=== PATIENT | female | born 2000 | race Caucasian/White ===

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

== ENCOUNTER 2020-07-17 09:38 | Inpatient (IN) | payer BC, SELFPAY ==
[2020-07-17] VITALS (90 sets, daily range): BP systolic 88–137; BP diastolic 58–93; PULSE 75–179; RESP 18; TEMP 36.6–37.2; O2SAT 95–100; BMI 34.7
--- NOTE | 2020-07-17 11:10 | LDADM ---
This patient, Kaley Chavarria, was admitted to Labor/Delivery/Recovery 104 on 07/17/20 at 09:38. Plans for labor, pain management and were discussed with patient. Patient/family oriented to hospital policies and general routines including ID bracelet, bed and alarms, visiting hours, pain management, procedures, bathroom and other care routines, personal items, smoking policy, room service/diet and guest tray routines, security routines, and visiting hours. Patient/Family are encouraged to report perceived risks to care and to ask questions if they do not understand what they are told or what they should do. See OBIX for further documentation.
[2020-07-17] MEDS: LACTATED RINGERS 1,000 ML 125 ML IV CONT (11:33)
[2020-07-17 11:35] LABS: Basophils Absolute Auto 0.1 K/mm3 (0.0-0.1); Basophils Percent Auto 0.3 % (0.2-1.2); Eosinophils Absolute Auto 0.1 K/mm3 (0-0.3); Eosinophils Percent Auto 0.3 % (0-4.4); Hematocrit 37.9 % (37.0-47.0); Hemoglobin 12.7 g/dL (12.0-15.0); Immature Granulocyte Absolute 0.15 K/mm3 (0.00-0.031); Immature Granulocyte Percent A 0.7 % (0-0.5); Lymphocytes Absolute Auto 2.54 K/mm3 (0.9-3.2); Lymphocytes Percent Auto 12.6 % (18.3-44.2); Mean Corpuscular HGB Conc 33.5 g/dl (32-36); Mean Corpuscular Hemoglobin 29.5 pg (26-34); Mean Corpuscular Volume 88.1 fl (80-100); Mean Platelet Volume 10.9 fl (7.4-10.4); Monocytes Absolute Auto 1.3 K/mm3 (0.1-0.6); Monocytes Percent Auto 6.3 % (2.6-8.5); Neutrophils Percent Auto 79.8 % (45.5-73.1); Platelet Count Result 265 k/mm3 (150-375); Red Cell Distribution Width 14.8 % (11.5-14.5); White Blood Count 20.1 K/mm3 (4.5-10.0)
--- NOTE | 2020-07-17 12:19 | WPDANESEPP ---
Anes - Eval Pre Procedure Procedure: Labor Epidural Date/Time: 07/17/20 12:19 Surgeon: Naeem Preop Diagnosis: Labor Pain Pre Op Diagnosis: Contractions Patient Data Age: 20 Gender: F Height: 5 ft 7 in Weight: 100.5 kg Last Vital Signs Pulse 97 07/17/20 12:18 BP 113/66 07/17/20 12:18 Pulse Ox 98 07/17/20 12:19 Allergies Allergy/AdvReac Type Severity Reaction Status Date / Time No Known Allergies Allergy Verified 06/20/20 12:37 Home Medications Medication Instructions Recorded Confirmed Type ferrous sulfate 325 mg PO DAILY 06/20/20 06/20/20 History prenat.vits,vashti,[id number] 1 tablet PO DAILY 06/20/20 06/20/20 History [ #2] Laboratory Tests 07/17/20 07/17/20 11:25 11:25 WBC 20.1 K/mm3 H K/mm3 (4.5-10.0) RBC 4.30 M/mm3 M/mm3 (4.2-5.4) Hgb 12.7 g/dL g/dL (12.0-15.0) Hct 37.9 % % (37.0-47.0) MCV 88.1 fl fl (80-100) MCH 29.5 pg pg (26-34) MCHC 33.5 g/dl g/dl (32-36) RDW 14.8 % H % (11.5-14.5) Plt Count 265 k/mm3 k/mm3 (150-375) MPV 10.9 fl H fl (7.4-10.4) Immature Gran % (Auto) 0.7 % H % (0-0.5) Neut % (Auto) 79.8 % H % (45.5-73.1) Lymph % (Auto) 12.6 % L % (18.3-44.2) [place] % (Auto) 6.3 % % (2.6-8.5) Eos % (Auto) 0.3 % % (0-4.4) Baso % (Auto) 0.3 % % (0.2-1.2) Lymph # (Auto) 2.54 K/mm3 K/mm3 (0.9-3.2) [place] # (Auto) 1.3 K/mm3 H K/mm3 (0.1-0.6) Eos # (Auto) 0.1 K/mm3 K/mm3 (0-0.3) Baso # (Auto) 0.1 K/mm3 K/mm3 (0.0-0.1) Abs Immat Gran (auto) 0.15 K/mm3 H K/mm3 (0.00-0.031) Absolute Neuts (auto) 16.0 K/mm3 H K/mm3 (1.3-6.7) Absolute Nucleated RBC 0.0 K/mm3 K/mm3 (0.0-0.012) Nucleated RBC % 0.0 % % (0.0-0.2) RPR Pending : gestational age (RAQUEL 07/18/20) Patient hx anesthesia problems: none Family hx anesthesia problems: none [facility] Past Medical History Medical History Accessory navicular bone of right foot Acute appendicitis Afib Current determined by history As of 11/24/19 No pertinent past medical history Overweight (BMI 25.0-29.9) Vision abnormalities Surgical History Surgical History History of appendectomy Family History Family History Other Unknown family medical history Social History Social History Smoking status: Never smoker Second hand tobacco smoke exposure: No Alcohol intake: current Substance use: never Gender identity (if verbalized by the patient): Female Spiritual care concerns: No Exam Day of Procedure 07/17/20 12:19 Patient weight: normal Heart: regular rate and rhythm Lungs: normal air movement Airway: Mallampati scale class II Neurological: alert and oriented
--- NOTE | 2020-07-17 12:43 | PM.IMHP ---
H&P: HPI History of Present Illness Date/Time: 07/17/20 12:43 Chief Complaint: contractions Narrative: Kaley Chavarria is a 20 yo @ 39.6wks (RAQUEL 07/18/20) who presented to L&D in painful contractions every 2-3 minutes and made cervical change from 3 to 4cm; early labor. She is now s/p epidural and comfortable. She denies vaginal bleeding or leakage of fluid. She feels good movement. She has had regular care. Her has been complicated by: - Varicella and rubella non-immune - Mild anemia on iron daily Review of Systems Constitutional: Constitutional: Denies chills and Denies fever(s) Eyes: Eyes: Denies change in vision Cardiovascular: Cardiovascular: Denies chest pain and Denies rapid heart rate Respiratory: Respiratory: Denies cough and Denies dyspnea Gastrointestinal: Gastrointestinal: Denies nausea and Denies vomiting Genitourinary: Genitourinary: Denies vaginal discharge Neurologic: Denies headache(s) Psychiatric: Psychiatric: Denies anxiety and Denies depression [facility] Past Medical History Medical History Accessory navicular bone of right foot Acute appendicitis Afib Current determined by history As of 11/24/19 No pertinent past medical history Overweight (BMI 25.0-29.9) Vision abnormalities Surgical History Surgical History History of appendectomy Family History Family History Other Unknown family medical history Social History Social History Smoking status: Never smoker Second hand tobacco smoke exposure: No Alcohol intake: current Substance use: never Gender identity (if verbalized by the patient): Female Spiritual care concerns: No Meds Home Medications and Allergies Home Medications Medication Instructions Recorded Confirmed Type ferrous sulfate 325 mg PO DAILY 06/20/20 06/20/20 History prenat.vits,vashti,[id number]-[id number]-[id number] 1 tablet PO DAILY 06/20/20 06/20/20 History [ #2] Allergies Allergy/AdvReac Type Severity Reaction Status Date / Time No Known Allergies Allergy Verified 06/20/20 12:37 Vital Signs Vital Signs - 24 hr 07/17/20 11:26 07/17/20 11:31 07/17/20 11:46 Pulse Rate 87 78 85 Blood Pressure 121/77 126/72 120/72 Pulse Oximetry 07/17/20 11:54 07/17/20 11:56 07/17/20 11:58 Pulse Rate 89 87 88 Blood Pressure 130/85 126/77 137/77 Pulse Oximetry 100 07/17/20 11:59 07/17/20 12:01 07/17/20 12:03 Pulse Rate 97 90 Blood Pressure 126/79 133/77 Pulse Oximetry 96 07/17/20 12:04 07/17/20 12:08 07/17/20 12:09 Pulse Rate 81 78 Blood Pressure 129/65 129/74 Pulse Oximetry 98 99 07/17/20 12:11 07/17/20 12:13 07/17/20 12:14 Pulse Rate 93 101 H Blood Pressure 124/72 136/70 Pulse Oximetry 97 07/17/20 12:16 07/17/20 12:18 07/17/20 12:19 Pulse Rate 120 H 97 Blood Pressure 124/70 113/66 Pulse Oximetry 98 07/17/20 12:21 07/17/20 12:23 07/17/20 12:24 Pulse Rate 97 93 Blood Pressure 119/67 110/68 Pulse Oximetry 98 07/17/20 12:26 07/17/20 12:29 07/17/20 12:31 Pulse Rate 88 99 119 H Blood Pressure 104/63 92/60 L 93/70 L Pulse Oximetry 98 07/17/20 12:33 07/17/20 12:34 07/17/20 12:36 Pulse Rate 98 96 Blood Pressure 88/74 L 107/69 Pulse Oximetry 97 07/17/20 12:38 07/17/20 12:39 07/17/20 12:41 Pulse Rate 102 H 108 H Blood Pressure 110/75 118/75 Pulse Oximetry 95 Exam Const: General: cooperative, healthy appearing and comfortable Resp: Effort & Inspection: normal respiratory effort and able to speak in complete sentences Cardio: Rate: regular rate GI: GI Palp: No abdominal tenderness and Yes Soft to palpation : Other: FHT's: 130's/ mod linda/ + accels/ no decels - cat 1 TOCO: ctx's q2-3min Cervix: 4/C/-1 M
--- NOTE | 2020-07-17 13:02 | WPDHPUPDATE1 ---
History and Physical Update Update Date/Time: 07/17/20 13:02 History and Physical has been reviewed, including an updated exam of the patient. There are NO changes in the patient's condition. Risks, benefits, and alternatives have been discussed and questions answered. Patient agrees to proceed with procedure.
[2020-07-17] MEDS: OXYTOCIN 30 UNITS/NS 500 ML 30 UNITS/500 ML BAG IV CONT (13:20)
--- NOTE | 2020-07-17 16:09 | PM.OBPRVD ---
OB - Delivery Note Procedure Delivery date: 07/17/20 Intrapartal events: None Delivery augmentation: rupture of membranes and pitocin Delivery monitor: external FHT and internal uterine Route of delivery: Laceration Description: Vaginal - 2nd Degree Delivery repair: vicryl Specimen: No Quantitative Blood Loss (ml): 400 Anesthesia type: Epidural Disposition: floor Narrative: Kaley rapidly progressed to complete dilation, with desire to push. After approximately 30 minutes of pushing, she delivered the head over intact perineum. No nuchal cord was palpated and she easily delivered the shoulders and body without complications. The infant had spontaneous cry and was immediately placed skin to skin. Delayed cord clamping was performed. The umbilical cord was then clamped and cut. A segment of the cord was collected for cord gases and the remaining cord blood was collected for typing. With Pitocin running, and gentle downward traction on the umbilical cord, the placenta delivered without complications. Bimanual massage was performed and good uterine tone with minimal bleeding was noted. The cervix, vagina, perineum were examined. A right-sided vaginal laceration that extended into the right labia was noted as well as a laceration in the hymen on the left side. Both lacerations were repaired in the normal fashion using 3 0 Vicryl. Good hemostasis was noted. Sponge, lap, needle, instrument counts were correct at the end of the procedure. Mom and baby were left bonding in the birthing suite in a stable condition. [place] Baby Date of : 07/17/20 Time of : 15:36 Weeks of gestation at delivery: 39 Infant gender: Female Weight (pounds): 7 Weight (ounces): 11 presentation: vertex position: Right Occiput Anterior Placenta delivery description: Expressed cord vessel description: 3 Vessels and Delayed Cord Clamping score one minute: 9 score five minutes: 9
[2020-07-17] MEDS: OXYTOCIN 30 UNITS/NS 500 ML 30 UNITS/500 ML BAG 125 UNITS IV CONT (16:21)
[2020-07-17] MEDS: BENZOCAINE 20% AER SPR (*SP) 56 GM CAN 1 SPRAY TOPICAL (18:28)
[2020-07-17] MEDS: WITCH HAZEL 40 PADS 1 PAD TOPICAL (18:28)
[2020-07-17] MEDS: IBUPROFEN 600 MG TABLET PO (18:29)
--- NOTE | 2020-07-17 19:39 | PC.NURSE ---
07/17/2020 at 1848 Patient transferred to post room #281. Kaley's mother, and support person present. Oriented to unit, room, information board, rooming in, admission packet and security measures, and plan of care for mother and baby discussed. Patient verbalizes understanding.
[2020-07-18] MEDS: IBUPROFEN 600 MG TABLET PO ×4 (00:55→20:45)
[2020-07-18 04:00] VITALS: BP 122/79; PULSE 80; RESP 16; TEMP 37.1; O2SAT 99
[2020-07-18 04:29] LABS: Hematocrit 30.7 % (37.0-47.0); Hemoglobin 10.3 g/dL (12.0-15.0)
--- NOTE | 2020-07-18 07:45 | PC.NURSE ---
Addendum entered by Irma Rinaldi RN 07/18/20 15:09: Mother reports she breastfed the first two feedings without issue. did not latch the third feeding and she has been making attempts and bottle feeding. Infant has been spitting up freq., discussed spitting is freq. in the and looks mucus reviewing amniotic fluid. Original Note: Mother called out for assist with feeding. is very spitty with large amounts clear mucus mother states she just wants to feed. Infant nippled 6 mls of formula per mother's request.
[2020-07-18] MEDS: DOCUSATE SODIUM 100 MG CAPSULE PO (08:28)
[2020-07-18] MEDS: MULTIVIT/MIN/PREN/FOL AC/IRON TABLET 1 TAB PO (08:29)
--- NOTE | 2020-07-18 09:38 | WPDANLDPN2 ---
Anes-Prog Note L&D Date/Time: 07/18/20 09:38 Comfortable throughout: labor and delivery Neuraxial method: epidural Epidural/Spinal procedure site: clean & non-tender Neuro status: Neuro function grossly intact. Cardiovascular status: normal Respiratory status: normal Airway patency: baseline Mental status: baseline Post-Op hydration status: normal Vital Signs: Last Vital Signs Temp 37.1 C 07/18/20 04:00 Pulse 80 07/18/20 04:00 Resp 16 07/18/20 04:00 BP 122/79 07/18/20 04:00 Pulse Ox 99 07/18/20 04:00 Pain score (VAS): 0/10. Patient resting in bed at time of assessment, appears comfortable. Support person at bedside. I/O: Intake & Output 07/17/20 07/18/20 07/18/20 23:59 07:59 15:59 Intake Total 700 Output Total 1147 Balance -447 Post-procedural complaints: none Patient feedback: Patient satisfied with anesthetic care.
[2020-07-18 09:55] LABS: Rapid Plasma Reagin Non-Reactive (NonReactive)
[2020-07-18 10:00] VITALS: BP 139/84; PULSE 92; RESP 20; TEMP 36.4; O2SAT 99
--- NOTE | 2020-07-18 13:02 | PM.OBPNVD ---
OB - PN: Subj Subjective Date/time seen: 07/18/20 13:02 s/p on 07/17. Doing well, having some cramping pain when getting up and walking but controlled with pain meds. Bleeding was a little heavy overnight but lightened up in the morning. Bottle and breast feeding. OB - PN: Obj Data Labs CBC & Chem 7: 07/18/20 04:13 Labs: Laboratory Results - last 24 hr 07/17/20 07/17/20 07/18/20 11:25 11:25 04:13 Hgb 10.3 L Hct 30.7 L RPR Non-reactive Blood Type A Positive Antibody Screen Negative OB - PN A/P Assessment and Plan (1) (normal spontaneous vaginal delivery): Code(s): O80 - Encounter for full-term uncomplicated delivery Status: Acute Assessment and Plan: Routine care Pain management Ambulate Time Spent With Patient Time: Total time spent is greater than 50% in coordination of care (as documented) at patient's floor/unit and/or counseling patient: Exam Const: General: cooperative, healthy appearing, comfortable, no acute distress, well developed, alert, awake and Physically active Resp: Effort & Inspection: normal respiratory effort, able to speak in complete sentences, no audible wheezes and no cough Cardio: Rate: regular rate GI: GI Palp: No abdominal tenderness, Yes Soft to palpation, No Tenderness to palpation present (GI) and No Guarding due to palpation present (GI) Other: fundus firm Neuro: General: oriented to person, oriented to place and oriented to time Psych: Appearance: grossly normal Mental Status: mental status grossly normal Speech and movement: Normal speech and movement present Affect: normal affect Attitude: cooperative Thought process: Normal thought process present Thought content: Yes Normal thought content present Insight: Good insight present (Psych) Judgement: Good judgement present (Psych)
[2020-07-18 13:05] VITALS: BP 119/79; PULSE 78; RESP 18; TEMP 36.3; O2SAT 97
--- NOTE | 2020-07-18 13:15 | PC.NURSE ---
Mother called out for assist with . Infant awake and showing feeding cues. Reviewed infant feeding cues, frequencies, duration of feedings, feeding elimination flow sheet, and signs of adequate intake. Demonstrated stimulation techniques to wake infant for feeding. Assisted with to breast. Reviewed positioning/alignment in cross cradle, holding breast and asymmetrical latch on. Infant was able to latch correctly. nursed eagerly, with steady draws and frequent swallowing noted. Reviewed signs of a correct latch, effective nursing and suck swallow ratio. was able to maintain latch without discomfort to mother. Nipple care reviewed. Advised to stimulate while feeding to keep infant awake and interested in feeding for increased stimulation for mother and increased intake for . Instructed mother to call out for RN assistance if she is unable to latch for feeding or she has discomfort with nursing. Instructed feeding should be initiated three hours from start of last feeding or if feeding cues are noted before. Mother voiced understanding of information shared.
--- NOTE | 2020-07-18 14:22 | PCCCNOTE ---
Received referral for positive cannabinoids on baby urine drug screen. Met with pt. and she confirms taking gummies with THC purchased at local dispensary for nausea and vomiting since 8th month of . She indicates having discussed same with her [employer]. She reports no other substance use. FOB is not involved. Pt. declines any concern regarding FOB. She indicates having much support from her mother, other family and friends. She lives with her mother and her 17 year old sister. She plans to return home with family and baby when discharged. She states having all needed items to care for baby at return home. She is on WIC. She declines any previous DCFS involvement. Report made to DCFS for positive cannabinoids and pt. situation is being taken as information only #[id number]. Offered pt. additional resources and encouraged she contact any/all of interest. No further care coordination needs indicated at this time.
[2020-07-18 20:00] VITALS: BP 105/65; PULSE 89; RESP 18; TEMP 37; O2SAT 97
[2020-07-19] MEDS: IBUPROFEN 600 MG TABLET PO ×2 (05:24→12:25)
--- NOTE | 2020-07-19 07:30 | PC.NURSE ---
Consult with pt., mother reports she attempted infant to breast a few time during the night. had difficulties with latching, mother then bottle fed. Mother states she will formula feed and not breastfeed. Offered pumping as an option, mother declined and will formula feed. Discussed engorgement relief. Mother is comfortable with bottle feeding and has no further questions.
[2020-07-19 07:35] VITALS: BP 120/73; PULSE 79; RESP 18; TEMP 36.2; O2SAT 99
[2020-07-19] MEDS: DOCUSATE SODIUM 100 MG CAPSULE PO (07:43)
[2020-07-19] MEDS: MEASLES,MUMPS,RUBELLA VACCINE 0.5 ML VIAL SUB-Q (07:43)
[2020-07-19] MEDS: WITCH HAZEL 40 PADS 1 PAD TOPICAL (07:43)
[2020-07-19] MEDS: MULTIVIT/MIN/PREN/FOL AC/IRON TABLET 1 TAB PO (07:43)
--- NOTE | 2020-07-19 10:00 | PC.NURSE ---
Patient viewed the discharge video Mother & Baby Care, The First Two Weeks . Patient was given the opportunity and encouraged to ask questions. Patient verbalized understanding of information shared and has been given the mother/baby guide for home reference.
--- NOTE | 2020-07-19 11:49 | PM.OBDSVD ---
DS: Admitting Diagnosis Admitting Diagnosis Admitting Diagnosis: Active labor DS: Discharge Diagnosis Discharge Diagnosis (1) (normal spontaneous vaginal delivery): Code(s): O80 - Encounter for full-term uncomplicated delivery Status: Acute Assessment and Plan: Routine care Pain management Ambulate OB - DS: Summary OB Procedures : None OB Procedures Intrapartum: Spontaneous Vag Delivery OB Procedures: : None Time Spent with Patient Time attestation: Total time spent providing and/or coordinating discharge services: Exam Const: General: cooperative, healthy appearing, comfortable, no acute distress, well developed, alert, awake and Physically active Orientation/consciousness: oriented to person, oriented to place, oriented to time and patient oriented x3 Resp: Effort & Inspection: normal respiratory effort, able to speak in complete sentences, no audible wheezes and no cough Cardio: Rate: regular rate GI: Other: fundus firm Neuro: General: oriented to person, oriented to place, oriented to time and patient oriented x3 Extrem: General: normal to inspection Psych: Appearance: grossly normal Mental Status: mental status grossly normal Speech and movement: Normal speech and movement present Affect: normal affect Attitude: cooperative Thought process: Normal thought process present Insight: Good insight present (Psych) Judgement: Good judgement present (Psych) Discharge Plan Discharge Attending physician on discharge: Ivette Hartley Discharging Clinician: Lucina Castellanos Patient Disposition: Home, Self-Care Activity: may shower, as tolerated and pelvic rest Diet: regular Discharge Instructions: Education: Mom and Baby Guide and Preeclampsia Handout Given to: Mother Follow-Up: Call your delivering provider's office for an appointment to be seen in: 4 Weeks Mom and baby should come to the [facility] for the follow-up appointment. Appointment Date/Time: July 20, 2020 at 8:00 am What to expect at your follow-up visit: Physical Assessment Call [phone] if you are unable to keep your appointment time. BREAST CARE: * Wear a snug supportive bra. * For engorgement discomfort: Bottle Feeding: * May apply ice packs EPISIOTOMY/PERINEAL CARE: * Until bleeding stops, use your alize bottle after urinating * Change your pad frequently throughout the day * You may take sitz baths several times a day (fill your bathtub with warm water and soak for 20 minutes.) Do NOT bathe in the water * No tub baths until seen by your physician - You may shower ACTIVITY: * Rest as much as possible. * Do not exercise or lift anything heavier than your baby (such as laundry or other children.) * Avoid stairs or driving as much as possible. * Do not put anything into the vagina. No douching, tampons, or sexual activity until seen by physician. NOTIFY PHYSICIAN IF YOU HAVE ANY QUESTIONS OR IF ANY OF THE FOLLOWING SYMPTOMS OCCUR: * If your episiotomy or stitches become red, swollen, or more painful than what you have experienced in the hospital. * If your vaginal bleeding becomes foul smelling. * If your vaginal bleeding becomes more heavy than a period or if your bleeding changes from pink to bright red. However, you may pass an occasional walnut-sized clot once or twice for the first week . * If you experience a sharp, shooting pain in you calves. * If you discover a hard, reddened area on your breast or if you experience flu-like symptoms. DIET: * Eat regular, well-balanced meals. * Drink plenty of fluids daily. Stand Alone Forms: General Discharge Information Follow-up/Referrals: Ivette Hartley MD [Physician] - Discharge Medications: New polysaccharide iron complex 150 mg iron Capsule 150 mg PO BIDWM Qty: 60 RF: 0 docusate sodium 100 mg Capsule 100 mg PO BID PRN (Reason: Constipation)
[2020-07-20 07:46] VITALS: BP 122/84; PULSE 100; RESP 20; TEMP 37; O2SAT 99
== END 2020-07-19 13:10 | disposition home or self-care (01) | DRG 560 ==
LOC: ANHOB2 07-19 08:47 → ANHLDR 07-20 11:02 → ANHOB2 07-20 11:02
PROVIDERS: Admitting Provider Obstetrics & Gynecology; PCP Family Medicine; Visit Provider Obstetrics & Gynecology
DX: O70.1 Second degree perineal laceration during delivery (principal); Z37.0 Single live birth; Z3A.39 39 weeks gestation of pregnancy
CPT/HCPCS: 36415; 85014; 85018; 85025; 86592; 86850; 86900; 86901; 90710; A9270; J2590; J2795; J7120

== ENCOUNTER 2023-12-11 19:10 | Emergency (ER) | payer OTHER, SELFPAY ==
--- NOTE | 2023-12-11 19:13 | ED.URI ---
HPI - URI/Sore Throat General Chief Complaint: Upper Respiratory Infection Stated Complaint: STIFF NECK/SWOLLEN TONSILS Time Seen by Provider: 12/11/23 19:41 Source: patient and RN notes reviewed Mode of arrival: ambulatory Limitations: no limitations History of Present Illness HPI Narrative: 23-year-old female presents with concern of for 2 month history of sore throat, stiff neck, ear pain, joint pain, abdominal discomfort. Reports she was diagnosed with strep in October, she has taken 2 rounds of antibiotics and had prednisone since this started without improvement of her symptoms. She reports she has been taking ibuprofen 3 times a day for her symptoms. She denies fever. She denies vomiting, diarrhea. MD elicited complaint: sore throat Related Data Home Medications Medication Instructions Recorded Confirmed No Home Medications 12/11/23 12/11/23 Allergies Allergy/AdvReac Type Severity Reaction Status Date / Time No Known Allergies Allergy Verified 12/11/23 19:29 Review of Systems Review of Systems: CONSTITUTIONAL: Denies malaise, chills, sweats, or fever. EYES: Denies visual changes, redness, or discharge. ENT: Denies rhinorrhea, congestion, sinus pain. Reports otalgia and sore throat. CARDIOVASCULAR: Denies chest pain, palpitations, or edema. RESPIRATORY: Denies cough. Denies dyspnea. GASTROINTESTINAL: Denies abdominal pain, nausea, vomiting, diarrhea. Reports abdominal discomfort SKIN: Denies rash or itching. MUSCULOSKELETAL: Reports myalgia. NEUROLOGIC: Denies headache. All systems reviewed & are unremarkable except as noted in HPI and below PMFSH Past Medical History Medical History Accessory navicular bone of right foot Acute appendicitis Afib Bronchitis Encounter for IUD insertion 08/31/20 Mirena insertion 01/19/21 Mirena removal/insertion Encounter for IUD removal 01/19/21 Mirena removal/insertion Encounter for screening examination for sexually transmitted disease No pertinent past medical history Overweight (BMI 25.0-29.9) Vaginal delivery 07/17/20 no complications [employer] abnormalities Surgical History Surgical History History of appendectomy History of wisdom tooth extraction Family History Family History (Updated 11/11/23 @ 15:59 by HOOD Corea) Father Atrial fibrillation Grandparent Dementia maternal grandmother Mother No problems noted. 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 There is no relevant family history pertinent to the presenting complaint Exam Narrative: GENERAL: Well-appearing, well-nourished, and in no acute distress. HEAD: Normocephalic EYES: PERRLA, conjunctivae clear ENT: Nares clear. Mucous membranes moist. TM pearly barbosa with sharp light reflex bilaterally; no tragal tenderness. Oropharynx not erythematous without lesions. Tonsils not enlarged and without exudate, no drooling, no hoarseness, no trismus, uvula midline. NECK: Supple. No lymphadenopathy CHEST: Clear to auscultation, breath sounds equal. No wheezing, rhonchi, rales, or stridor. No respiratory distress, speaks in full sentences. HEART:
[2023-12-11 19:18] VITALS: BP 112/75; PULSE 77; RESP 16; TEMP 36.6; O2SAT 99
[2023-12-11 19:42] LABS: EDMONONEGPOS Negative
== END 2023-12-11 19:52 | disposition home or self-care (01) ==
PROVIDERS: Emergency Provider Nurse Practitioner
DX: B34.9 Viral infection, unspecified (principal); F12.90 Cannabis use, unspecified, uncomplicated; I48.91 Unspecified atrial fibrillation
CPT/HCPCS: 36416; 86308; 99213; G0463

== ENCOUNTER 2023-12-13 10:35 | Outpatient (CLI) | payer OTHER, SELFPAY ==
[2023-12-13 18:59] LABS: Hematocrit 44.5 % (37.0-47.0); Hemoglobin 14.8 g/dL (12.0-15.0); Mean Corpuscular HGB Conc 33.3 g/dl (32-36); Mean Corpuscular Hemoglobin 31.2 pg (26-34); Mean Corpuscular Volume 93.7 fl (80-100); Mean Platelet Volume 10.1 fl (7.4-10.4); Platelet Count Result 234 k/mm3 (150-375); Red Blood Count 4.75 M/mm3 (4.2-5.4); Red Cell Distribution Width 12.7 % (11.5-14.5); White Blood Count 7.2 K/mm3 (4.5-10.0)
[2023-12-13 19:09] LABS: Alanine Aminotransferase 46 U/L (6-35); Albumin Level 4.3 g/dL (3.5-5.1); Alkaline Phosphatase 81 U/L (38-126); Anion Gap 9 mmol/L (4-12); Aspartate Amino Transferase 25 U/L (14-36); Bilirubin,Total 1.4 mg/dL (0.2-1.3); Blood Urea Nitrogen 13 mg/dL (7-17); Calcium 9.4 mg/dL (8.4-10.2); Carbon Dioxide 24 mmol/L (22-30); Chloride 105 mmol/L (98-107); Cholesterol 240 mg/dL (0-200); Estimated Glomerular Filt Rate > 60; Glucose 81 mg/dL (65-110); HDL Direct 48 mg/dL; Lipase 52 U/L (23-300); Sodium 138 mmol/L (137-145); Triglycerides 107 mg/dL (<150)
[2023-12-13 19:22] LABS: Free T4 Free Thyroxine 1.37 ng/mL (0.78-2.19)
[2023-12-13 19:29] LABS: LDL Cholesterol Direct 173 mg/dL
[2023-12-13 20:05] LABS: Hemoglobin A1C 5.5 % (<5.7)
[2023-12-13 20:12] LABS: Appearance Urine Cloudy (Clear); Bacteria Urine 2+ /hpf; Bilirubin Urine Negative (Negative); Blood Urine Negative (Negative); Color Urine Yellow (Yellow); Glucose Urine UA Negative (Negative); Ketones Urine Negative (Negative); Leukocyte Esterase Ur Trace LEU/UL (Negative); Nitrate Urine Negative (Negative); Non Pathogenic Casts 0-2; Protein Urine Negative (Negative); Specific Grav Ur 1.019 (1.001-1.035); Squamous Epithelial Cell Urine Few /hpf (Few); Urobilinogen Urine 0.2 mg/dL (<2.0); WBC Urine 0-5 /hpf (0-3); pH Urine 7.5 (5.0-9.0)
[2023-12-13 20:14] LABS: Add Urine Microscopic? YES
== END 2023-12-13 10:36 | disposition home or self-care (01) ==
PROVIDERS: Visit Provider Emergency Medicine
DX: R10.9 Unspecified abdominal pain (principal); H92.09 Otalgia, unspecified ear
CPT/HCPCS: 36415; 80053; 80061; 81001; 83013; 83036; 83690; 84439; 84443; 85027

== ENCOUNTER 2023-12-14 08:35 | Outpatient (CLI) | payer OTHER, SELFPAY ==
--- NOTE | ~2023-12-14 | XR_ITS ---
EXAMINATION: XR chest 2V 12/14/2023 09:22 INDICATION: E cigarette user PROCEDURE: 2 view chest COMPARISON: 06/12/2026 FINDINGS: The lungs are clear. The cardiomediastinal silhouette is within normal limits. There are no pleural effusions. There is no pneumothorax suspected. IMPRESSION: 1: NO ACUTE CARDIOPULMONARY DISEASE. Reviewed, dictated and finalized at location B.
--- NOTE | ~2023-12-14 | US_ITS ---
US abdomen complete EXAMINATION: US Abdomen Complete INDICATION: Abdomen pain PROCEDURE: Realtime High Resolution abdomen ultrasound. COMPARISON: No prior studies for comparison FINDINGS: Gallbladder within normal limits. No gallstones, pericholecystic fluid, gallbladder wall t hickening or biliary dilatation. Common bile duct measures 4 mm. Liver echotexture within normal limits without focal mass. Pancreas within normal limits. Pancreati c tail is obscured by bowel gas. Spleen is unremarkeable. Renal echotexture is within normal limits bilaterally without hydronephrosis, contour deforming mass or renal stone. Right kidney measures 11.1 cm. Left kidney measures 10.3 cm. Visualized aspects of the aorta and IVC are within normal limits. Portal vein is patent. No sonograph ic Epperson's sign indicated by the technologist. IMPRESSION: 1: Normal abdominal ultrasound. Reviewed, dictated and finalized at location B.
== END 2023-12-14 08:36 ==
LOC: MICIMG 08:36
PROVIDERS: PCP Emergency Medicine; Visit Provider Emergency Medicine
DX: R10.9 Unspecified abdominal pain (principal)
CPT/HCPCS: 71046; 76700

== ENCOUNTER 2024-02-18 19:04 | Emergency (ER) | payer OTHER, SELFPAY ==
[2024-02-18 19:15] VITALS: BP 124/80; PULSE 80; RESP 16; TEMP 36.8; O2SAT 100
--- NOTE | 2024-02-18 19:27 | PC.NURSE ---
Pt calmed down in triage and reports she feels better and wants to go home. Pt reports she will return to the ED if needed regarding in CP or dyspnea
== END 2024-02-18 19:27 | disposition left against medical advice (07) ==
PROVIDERS: PCP Emergency Medicine
DX: R07.9 Chest pain, unspecified (principal)
CPT/HCPCS: 99199

== ENCOUNTER 2025-04-15 09:18 | Emergency (ER) | payer OTHER, SELFPAY ==
--- OUTSIDE RECORDS SUMMARY | 2011-08-29 18:00 | XMS_ITS | Continuity of Care Document ---
Author Organization [facility] Address [address] [place] [id number] Phone Care Team Providers Care Character Impersonator Name Role Phone Unavailable Unavailable Unavailable Advance Directives Directive Yes / No Effective Date File Name No Information Encounters Encounter Description Practice Location Reason(s) For Visit Diagnoses Date Provider Providers Copied on Encounter [facility], [address] [place] [address], [address], [place] tel:[phone] [facility] [place] [facility] No Information 2 2 No Information Referring Provider: ASHLI GREER [address], [address]. tel:[phone] Family History Family Member Type Diagnosis Age At Onset No Information Payers Payer name Insurance type Covered republican ID Robbie phillips(s) [facility] [id number] Social History Type Description Quantity Date Captured Comments Sex Female Smoking Status No Information Chief Complaint And Reason For Visit No Information History Of Present Illness Encounter Date Complaint History Of Prese nt Illness No Information Instructions Date Instruction Additional Infor mation No Information Assessments Type Assessment Date No Information
--- OUTSIDE RECORDS SUMMARY | 2011-08-29 18:00 | XMS_ITS | Continuity of Care Document ---
Author Organization [facility] Address [address] [place] [id number] Phone Care Team Providers Care Creative Technologist Name Role Phone Unavailable Unavailable Unavailable Advance Directives Directive Yes / No Effective Date File Name No Information Encounters Encounter Description Practice Location Reason(s) For Visit Diagnoses Date Provider Providers Copied on Encounter [facility], [address] [place] [address], [address], [place] tel:[phone] [facility] [place] [facility] No Information 2 2 No Information Referring Provider: ASHLI GREER [address], [address]. tel:[phone] Family History Family Member Type Diagnosis Age At Onset No Information Payers Payer name Insurance type Covered green party ID Robbie phillips(s) [facility] [id number] Social History Type Description Quantity Date Captured Comments Sex Female Smoking Status No Information Chief Complaint And Reason For Visit No Information History Of Present Illness Encounter Date Complaint History Of Prese nt Illness No Information Instructions Date Instruction Additional Infor mation No Information Assessments Type Assessment Date No Information
--- NOTE | ~2025-04-15 | XR_ITS ---
EXAMINATION: XR chest 2V, 04/15/2025 10:45 [facility] HISTORY: r/o PNA COMPARISON: No comparisons available. Technique: 2 views obtained. Findings: The lungs are clear, no effusion. No pneumothorax. Heart is normal size. Mediastinal and hilar contours are within normal limits. Bony thorax no acute abnormality. Impression: No acute cardiopulmonary abnormality. Reviewed, dictated and finalized at location [facility] Impression: No acute cardiopulmonary abnormality.
--- OUTSIDE RECORDS SUMMARY | 2025-04-15 09:20 | XMS_ITS | Data Portability ---
Author Organization [facility] [employer] [facility], Main Office Address [address] [place] [address] Assessment No assessment recorded. Plan of Treatment Reminders Order Date Submit Date Provider Last Modified By Organization Details Last Modified Time Details Appointments None recorded. Lab rapid strep group A, throat [address], [place], [address], 4 16:37:55 streptococc us group A, culture, throat 2023 024 [facility] (Lab), [address] [place], [address], 4 09:18:13 urinalysis, dipstick [address], [place], [address], 3 16:29:38 culture, urine + sensitivity [address] (Lab), [address] [place], [address], 3 16:30:20 rapid strep group A, throat 2022 023 [facility] [address], [place], [address], 3 14:54:15 test, urine 2022 [address], [place], [address], 3 15:54:45 streptococc us group A, culture, throat 2022 023 [email or web address] [facility] ([facility] [address] [place], [address], 3 11:43:23 Referral None recorded. Procedures None recorded. Surgeries None recorded. Imaging None recorded. Medication Orders penicillin V potassium 250 mg tablet 2023 024 [facility], [address] [place], [address], 4 16:36:20 ciprofloxac in 500 mg tablet [address] [id number], [address] [place], [place], [id number], 4 16:22:52 penicillin V potassium 250 mg tablet [address] [id number], [address] [place], [id number], 3 12:40:57 Patient TargetsNo targets recorded. Patient InstructionsNo instructions recorded. Reason for Referral None Reported. Results Created Date Observation Date Name Description Value Unit Range Abnormal Flag Note LastModifiedBy Organization Detail LastModifiedTime 09/28/19 23 09/27/2022 pregn ankit test, urine HCG negati ve Not Available [address], [place], [address], 09/27/2022 14:44:44 09/28/19 23 09/27/2022 pregn ankit test, urine HCG negati ve Not Available [address], [place], [address], 09/27/2022 14:44:44 09/28/19 23 09/27/2022 rapid strep group A, throa t STREP A negati ve Not Available [address], [place], [address], 09/27/2022 14:44:38 10/27/1910/26/2022 urina lysis , dipst ick Leukocytes (reference range: negative mj/ l) Trace Not Available [address] [place], [place], [address], 10/18/2022 14:08:08 10/27/19 23 10/26/2022 urina lysis , dipst ick Nitrite (reference rage: negative mg/dl) negati ve Not Available [address], [place], [address], 10/18/2022 14:08:08 10/27/1910/26/2022 urina lysis , dipst ick Urobilinogen (reference range: 0.2-1 mg/dl) 0.2 Not Available [address], [place], [address], 10/18/2022 14:08:08 10/27/1910/26/2022 urina lysis , dipst ick pH (reference range: 5-7) 6.5 Not Available [address] [place], [place], [address], 10/18/2022 14:08:08 10/27/19 23 10/26/2022 urina lysis , dipst ick Blood (reference range: negative Morro/ l) Large Not Available [address] [place], [place], [address], 10/18/2022 14:08:08 10/27/19 23 10/26/2022 urina lysis , dipst ick Specific Henning (reference range: 1.005-1.030) 1.030 Not Available [address] [place], [place], [address], 10/18/2022 14:08:08 10/27/19 23 10/26/2022 urina lysis , dipst ick Ketone (reference range: negative mg/dl) Negati ve Not Available [address] [place], [place], [address], 10/18/2022 14:08:08 10/27/19 23 10/26/2022 urina lysis , dipst ick Bilirubin (reference range: negative mg/dl) Negati ve Not Available [address] [place], [place], [address], 10/18/2022 14:08:08 10/27/1910/26/2022 urina lysis , dipst ick Glucose (reference range: negative mg/dl) Negati ve Not Available [address] [place], [place], [address], 10/18/2022 14:08:08 10/27/1910/26/2022 urina lysis , dipst ick Appearance Clear Not Available [address], [place], [address], 10/18/2022 14:08:08 10/27/1910/26/2022 urina lysis , dipst ick Color Dark Yellow Not Available [address] [place], [place], [address], 10/18/2022 14:08:08 10/27/19 23 10/26/2022 urina lysis , dipst ick Protein (reference range: negative mg/dl) Modera te Not Available [address] [place], [place], [address], 10/18/2022 14:08:08 05/30/19 24 05/30/2023 rapid strep group A, throa t STREP A negati ve Not Available [address] [place], [place], [address], 05/30/2023 16:32:21 Result Notes None recorded. Problems Name Problem SNOMED Code Status Onset Date Resolution Date Notes Provider Name and Address Organization Details Recorded Time Diabetes mellitus 12239369 Completed 201902/09/2020 Not Available [facility] 3 21:50:39 Acute pharyngiti s 925762488 Active 2022 RAJAN Fay [address], [place], [address] , [employer] 3 14:44:21 Dysuria 58625659 Active 2022 RAJAN Fay [address], [place], [address] , [employer] 3 14:07:59 Otitis media 66426211 Active 2022 RAJAN Fay [address], [place], [address] , [place] [employer] [facility] [employer] [facility] [employer] 3 12:51:54 Sinusitis 45131126 Active 2023 RAJAN Fay [address], [place], [address] , [place] [employer] [facility] [employer] 4 10:39:56 Problem Notes None recorded. Procedures Surgical History Date Name Laterality Status Provider Name and Address Organization Details Recorded Time 03/14/20 21 Date of Last Pap Smear completed Not Available [facility] 07/18/2022 21:50:03 01/20/20 21 SUBSTATION OPERATOR TRANSFORMING Procedure completed Not Available [facility] 2022 21:50:04 09/01/19 21 SUBSTATION OPERATOR TRANSFORMING Procedure completed Not Available [facility] 2022 21:50:04 Appendectomy completed Not Available [facility] 07/18/2022 21:50:04 [place] [facility] completed Not Available [facility] 07/18/2022 21:50:04 Imaging Results None recorded. Procedure Notes None recorded. Medical Equipment None Reported. Allergies No known drug allergies Medications Name Sig Start Date Stop Date Status Note LastModified by Organization Details LastModified Time penicilli n V potassium 250 mg tablet TAKE 1 TABLET BY MOUTH EVERY 6 HOURS FOR 10 DAYS active Not Available Not Available No t Available Mirena 21 mcg/24 hr (up to 8 years) 52 mg intrauter ine device Take 1 device by intraute rine route. 09/27 completed Not Available Not Available Not Available prednison e 10 mg tablet active Not Available Not Available Not Available Vitamin B-6 25 mg tablet active Not Available Not Available Not Available azithromy cecilia 250 mg tablet TAKE 2 TABLETS (500 MG) BY ORAL ROUTE ONCE DAILY FOR 1 DAY THEN 1 TABLET (250 MG) BY ORAL ROUTE ONCE DAILY FOR 4 DAYS 09/27 completed Not Available Not Available Not Available fluconazo le 150 mg tablet TAKE 1 TABLET BY MOUTH ONE DOSE active Not Available Not Available No t Available hydrocodo ne 5 mg-acetam inophen 325 mg tablet TAKE 1 TO 2 TABLETS BY MOUTH EVERY 6 HOURS NEEDED FOR PAIN 10/12 completed Not Available Not Available Not Available phenazopy ridine 200 mg tablet TAKE 1 TABLET BY MOUTH THREE TIMES DAILY FOR 2 DAYS 04/23 completed Not Available Not Available Not Available prednison e 20 mg tablet Take 2 tabs PO twice daily for 2 days; 1 tab PO twice daily for 5 days; 1/2 tab PO twice daily for 2 days; 1/2 tab PO once for 1 day. TAKE 2ND DOSE EVERYDAY AT NOON-10 DAY COURSE active Not Available Not Available No t Available penicilli n V potassium 500 mg tablet TAKE 1 TABLET BY MOUTH TWICE DAILY UNTIL ALL TAKEN active Not Available Not Available No t Available metronida zole 500 mg tablet Take 1 tablet every 12 hours by oral route for 7 days. active do not consume alcohol when taking this antibiot ic Not Available Not Available Not Available ciproflox acin 500 mg tablet TAKE 1 TABLET BY MOUTH EVERY 12 HOURS FOR 10 DAYS active Not Available Not Available No t Available sulfameth oxazole 800 mg-trimet hoprim 160 mg tablet TAKE 1 TABLET BY MOUTH EVERY 12 HOURS FOR 10 DAYS 04/23 completed Not Available Not Available Not Available ketorolac 10 mg tablet TAKE 1 TABLET BY MOUTH EVERY 6 HOURS FOR 3 DAYS 10/12 completed Not Available Not Available Not Available amoxicill in 875 mg tablet TAKE 1 TABLET BY MOUTH EVERY 12 HOURS FOR 10 DAYS 04/23 completed Not Available Not Available Not Available DOK 100 mg capsule TAKE ONE CAPSULE BY MOUTH TWICE DAILY NEEDED FOR CONSTIPA TION 10/12 completed Not Available Not Available Not Available ibuprofen 600 mg tablet TAKE 1 TABLET BY MOUTH EVERY 6 HOURS NEEDED FOR CRAMPING 10/12 completed Not Available Not Available Not Available levofloxa cecilia 500 mg tablet TAKE 1 TABLET BY MOUTH DAILY FOR 10 DAYS active Not Available Not Available No t Available methylpre dnisolone 4 mg tablets in a dose pack TAKE DIRECTED 09/27 completed Not Available Not Available Not Available fluticaso ne propionat e 50 mcg/actua tion nasal spray,cheyanne pension SHAKE LIQUID AND USE 2 SPRAYS IN EACH NOSTRIL EVERY MORNING NEEDED 04/23 completed Not Available Not Available Not Available doxycycli ne hyclate 100 mg tablet TAKE 1 TABLET BY MOUTH TWICE DAILY FOR 10 DAYS 09/27 completed Not Available Not Available Not Available metoclopr amide 10 mg tablet active Not Available Not Available No t Available Poly-Iron 150 mg iron capsule TAKE 1 CAPSULE BY MOUTH TWICE DAILY WITH MEALS 10/12 completed Not Available Not Available Not Available azithromy cecilia 500 mg tablet 10/12 completed Not Available Not Available Not Available nitrofura ntoin monohydra te/macroc rystals 100 mg capsule TAKE 1 CAPSULE BY MOUTH EVERY 12 HOURS FOR 7 DAYS 09/27 completed Not Available Not Available Not Available 28 mg iron-800 mcg tablet TAKE 1 TABLET BY MOUTH DAILY 10/12 completed Not Available Not Available Not Available Vitals Date Recorded Body height Body mass index (BMI) Body weight Body temperature Heart rate Oxygen saturation Systolic And Diastolic Provider Name and Address Organization Details Last Updated DateTime 4 170.18 cm 30.9 kg/m2 08114.7 g 97.6 [degF] 102 /min 98 % 126/88 mm[Hg] Destiny Lara MA [facility] [employer] [facility] 4 16:22:39 Date Recorded Body weight Body mass index (BMI) Body height Body temperature Heart rate Oxygen saturation Systolic And Diastolic Provider Name and Address Organization Details Last Updated DateTime 3 29183.1 g 30.7 kg/m2 170.18 cm 97.9 [degF] 91 /min 98 % 126/82 mm[Hg] Destiny Lara MA [facility] 3 14:20:10 Date Recorded Body height Provider Name an d Address Organization Details Last Updated DateTime 10/18/2022 170.18 cm Destiny olmos MA [facility] 10/18/2022 12:00:05 Date Recorded Body height Body mass index (BMI) Body weight Body temperature Heart rate Oxygen saturation Systolic And Diastolic Provider Name and Address Organization Details Last Updated DateTime 3 170.18 cm 31.2 kg/m2 92244.8 8 g 97.6 [degF] 96 /min 99 % 112/80 mm[Hg] Destiny Lara MA [facility] 3 12:40:24 Date Recorded Body height Body mass index (BMI) Body weight Body temperature Heart rate Respiratory rate Oxygen saturation Systolic And Diastolic Provider Name and Address Organization Details Last Updated DateTime 3 170.18 cm 31.2 kg/m2 79727.8 8 g 97.1 [degF] 106 /min 16 /min 98 % 124/82 mm[Hg] Lissa Ruelas RN [facility] [employer] [facility] 3 16:18:49 Social History Question Answer Notes LastModified by Organizat ion Details LastModified Time Tobacco Smoking Status Never Smoker Not Available [employer] 07/18/2022 21:49:51 What Is Your Level Of Caffeine Consumption? Occasional [id number] Information not available 07/18/2022 Do You Use Your Seat Belt Or Car Seat Routinely? Yes [id number] Information not available 07/18/2022 Do You Participate In Social Media? Yes [email or web address] Information not available 09/27/2022 Sex: Unknown Functional Status Question Answer Note LastModified by Organizat ion Details LastModified Time Do you use any illicit or recreational drugs? No [id number] Information not available 07/18/2022 What is your level of alcohol consumption? Occasional [id number] Information not available 07/18/2022 Do you or have you ever used smokeless tobacco? Never used smokeless tobacco [id number] Information not available 07/18/2022 Do you or have you ever used e-cigarettes or vape? Former user of electronic cigarettes [id number] Information not available 07/18/2022 What is your exercise level? Occasional [id number] Information not available 07/18/2022 Mental Status Question Answer Note LastModified by Organization D etails LastModified Time Do you feel stressed (tense, restless, nervous, or anxious, or unable to sleep at night)? [id number] [email or web address] Information not available 09/27/2022 Family History Relationship Description Onset Age of this Age Resolved Age Notes LastModified by Organization Details LastModified Time Father No current problems or disability [email or web address] Not available 03/2023 14:20:51 Mother No current problems or disability [email or web address] Not available 03/2023 14:20:52 Medical History No medical history recorded. Gynecological History Statement/Question Response Abnormal Pap N Date of Last Pap Smear 03/14/2021 Current Control Method IUD Age at Menarche 10 Date of LMP Breast Problems no Obstetrics History GPAL:G 1 P 1 0 0 1 Type Value Full Term 1 Living 1 Total 1 Past Encounters Encounter ID Performer Location Encounter Start Date Encounter Closed Date Diagnosis/Indication Diagnosis SNOMED-CT Code Diagnosis ICD10 Code Diagnosis IMO Codes Diagnosis Note [id number] [facility]M [facility]_ DEFAULT_1 _1 , 08/09/2020 00:00:00 08/09/2020 14:05:58 [id number] [facility]_ DEFAULT_1 _1 , 08/31/2020 00:00:00 08/31/2020 12:57:25 [id number] [facility] _[facility]HENA_M IGRATION_ DEFAULT_1 _1 , 10/12/2020 00:00:00 10/12/2020 10:24:03 [id number] [facility]_ DEFAULT_1 _1 , 01/16/2021 00:00:00 01/16/2021 14:24:13 [id number] [facility]_ DEFAULT_1 _1 , 01/19/2021 00:00:00 01/19/2021 12:01:57 [id number] [facility]_M I[facility]_ DEFAULT_1 _1 , 03/14/2021 00:00:00 03/14/2021 15:30:50 [id number] [facility]_M IGR[facility]_ DEFAULT_1 _1 , 04/20/2021 00:00:00 04/20/2021 09:22:12 [id number] Gary Gann MD [facility] [address] [place] [address] [place] [address] 09/27/2022 14:04:12 09/27/2022 15:49:38 Acute pharyngitis 955771882 J02.9 Urine preg mak test negative 645496300 Z32.02 [id number] Gary Gann MD [facility] [address] [place] [address] [place] [address] 10/18/2022 11:54:29 11/06/2022 12:28:14 Dysuria 95482035 R30.0 [id number] Gary Gann MD [facility] [address] [place] [address] [place] [address] 04/23/2023 12:31:05 04/23/2023 12:57:00 Otitis media 05708067 H66.93 [id number] Gary Gann MD [facility] [place] [facility] [address] [facility] [place] [address] 05/14/2023 16:13:35 05/14/2023 16:32:19 Otitis media 38251649 H66.93 [id number] Gary Gann MD [facility] [place] [address] [facility] [place] [address] 05/30/2023 16:00:31 05/30/2023 16:38:05 Acute pharyngitis 312932824 J02.9 Health Concerns Section Related Observation LastModified by Organization Detai ls LastModified Time None Recorded Concern Status LastModified by Organization Details LastModified Time None Recorded Advance Directives Directive None Recorded Payers Insurance Date Sequence Insurance Name Policy Number Policy Levy Covered Member ID Levy Member ID Guarantor Name 09/27/2022 1 [facility] PRIOR TO 12/18/2024 (MEDICAID REPLACEMENT - HMO) [id number] [facility] [id number] Kaley Hope 04/22/2023 1 [facility] (MEDICAID HMO) [id number] Kaley Hope [id number] [facility] 05/30/2023 1 [facility] [id number] [facility] Hope [id number] [facility] Notes Date Note Type Note Provider Name and Address Organization Details Recorded Time 09/27/2022 text/html ROS as noted in the HPI 22 y/o with sore throat 4 on a scale of 1 to 10 for 2 days ......no fever , strep is going around work, no one sick at home RAJAN Fay [address], [place], [address], [employer] 10/08/2022 15:54:48 04/23/2023 text/html ROS as noted in the HPI ears ache , full , no fever. RAJAN Fay [address], [place], [address], [employer] 05/05/2023 08:10:55 05/14/2023 text/html ROS as noted in the HPI feels so much better , a little twinge right ear RAJAN Fay [address], [place], [address], [employer] 05/14/2023 21:42:25 05/30/2023 text/html ROS as noted in the HPI sore throat , exposed to strep . RAJAN Fay [address], [place], [address], [employer] 06/03/2023 09:16:47 OBGyn Episode No OBEpisode recorded.
--- OUTSIDE RECORDS SUMMARY | 2025-04-15 09:20 | XMS_ITS | Clinical Summary ---
Author Organization 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 Gender Identity Not on file Sexual Orientation Not on file Plan of Treatment Health Maintenance Due Date Last Done Comments Hepatitis C Virus (HCV) Screening 2000 TdaP Immunization 2000 Human Papillomavirus (HPV) Immunization (2 - 3-dose series) 03/17/2018 02/17/2018 Influenza Immunization (#1) 01/18/202505/2017, 03/15/2001, 03/08/2001 SARS-COV-2 Immunization ( season) 2025 Respiratory Syncytial Virus (RSV) Immunization (Adult) (1 - 1-dose 75+ series) 2075 DTaP/Tdap/Td Immunization Discontinued 2000, 2000, 2000 Hepatitis B Immunization Completed 001, 2000, 2000, Additional history exists Pneumococcal Immunization Combined Aged Out 03/15/2001, 2000, 2000, Additional history exists No longer eligible based on patient's age to complete this topic Meningococcal B Immunization Discontinued 02/17/2018 Meningococcal Immunization (ACWY) Completed 02/17/2018 Rotavirus Immunization Aged Out No lo nger eligible based on patient's age to complete this topic
--- OUTSIDE RECORDS SUMMARY | 2025-04-15 09:20 | XMS_ITS | Clinical Summary ---
Author Organization [facility] Address [address] [place] [address] Care Team Providers Care Technology Resource Teacher Name Role Phone Unavailable Primary Care Provider Unavailabl e Source Comments [facility],non-owned Affiliates and Associated Physician Practices is amultiple site organization consisting of ambulatory clinics and hospital sitesin [place], [place], [place] and [place]. This disclosure is being madepursuant to the Care Everywhere program and may not contain all information available regarding this patient. Last updated 18.[facility] [employer] Allergies No known active allergies Immunizations Immunization Administration Dates Next Due INFLUENZA VACCINE, QUADR. 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 Gender Identity Not on file Sexual Orientation Not on file Plan of Treatment Health Maintenance Due Date Last Done Comments HIV SCREENING 2015 HPV VACCINE (1 - 3-dose series) 2015 CHLAMYDIA/GONORRHEA SCREENING 2016 HEPATITIS C SCREENING 03/09/2018 HEPATITIS B VACCINE (1 of 3 - 19+ 3-dose series) 2019 DEPRESSION SCREENING 05/20/2024 COVID-19 VACCINE (1 - 2024-2 6 season) 2025 INFLUENZA VACCINE (#1) 2025 05/17/2020 DTAP/TDAP/TD VACCINES (2 - T d or Tdap) 05/17/2030 05/17/2020 ZOSTER VACCINE (1 of 2) 2050 HIB VACCINE Aged Out No longer eligi ble based on patient's age to complete this topic MENINGOCOCCAL (Group B) VACC INE SHARED DECISION-MAKING Aged Out No longer eligibl e based on patient's age to complete this topic MENINGOCOCCAL GROUPS A/C/Y/W VACCINE Aged Out No longer eligible b ased on patient's age to complete this topic PNEUMOCOCCAL VACCINE Aged Out No long er eligible based on patient's age to complete this topic Insurance MEDICAID - OUT OF STATE
[2025-04-15 09:47] VITALS: BP 119/77; PULSE 108; RESP 16; TEMP 37.2; O2SAT 100
[2025-04-15 09:51] VITALS: O2SAT 100
--- OUTSIDE RECORDS SUMMARY | 2025-04-15 10:03 | XMS_ITS | Clinical Summary ---
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
--- OUTSIDE RECORDS SUMMARY | 2025-04-15 10:03 | XMS_ITS | Clinical Summary ---
Author Organization [facility] Address [address] [place] [address] Care Team Providers Care Belt Changer Name Role Phone Unavailable Primary Care Provider Unavailabl e Source Comments [facility],non-owned Affiliates and Associated Physician Practices is amultiple site organization consisting of ambulatory clinics and hospital sitesin [place], [place], [place] and [place]. This disclosure is being madepursuant to the Care Everywhere program and may not contain all information available regarding this patient. Last updated 18.[facility] [employer] Allergies No known active allergies Immunizations Immunization Administration Dates Next Due INFLUENZA VACCINE, QUADR. 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
[2025-04-15 10:22] LABS: Influenza A QL RT-PCR Negative (Negative); Influenza B QL RT-PCR Negative (Negative); RSV RNA, RT-PCR Negative (Negative); SARS-CoV-2 RNA PCR Negative (Negative)
--- NOTE | 2025-04-15 10:23 | ECG_ITS ---
Test Date: 2025-04-15 11:19:34 Measurements Intervals [place] Rate: 83 P: 56 SC: 165 QRS: 15 QRSD: 84 T: 8 QT: 366 QTc: 431 Interpretive Statements SINUS RHYTHM NORMAL ECG No previous ECG available for comparison Electronically Signed On 04-15-2025 12:30:58 ROUTE RIDER SUPERVISOR by Fermin Pineda M.D.
--- NOTE | 2025-04-15 11:09 | ED.URI ---
HPI - URI/Sore Throat General Chief Complaint: Upper Respiratory Infection Stated Complaint: I think I might have pneumonia Time Seen by Provider: 04/15/25 09:34 Source: patient Mode of arrival: ambulatory Limitations: no limitations History of Present Illness HPI Narrative: Patient is a 25 year female who presents to the ED with report of shortness of breath. Patient reports she has been sick over the past couple of days with cough, congestion, rhinorrhea. States she has been bringing up green mucus with her cough. Today, she began feeling very short of breath, pain with deep breathing. Prompted here for further evaluation. Denies history of previous lung issues. Denies known fevers. Denies history of blood clots. Denies pain or swelling in legs. Related Data Allergies Allergy/AdvReac Type Severity Reaction Status Date / Time No Known Allergies Allergy Verified 04/15/25 10:06 Review of Systems Review of Systems: All systems reviewed & are unremarkable except as noted in HPI. All systems reviewed & are unremarkable except as noted in HPI and below PMFSH Past Medical History Medical History Encounter for screening examination for sexually transmitted disease Vaginal delivery 07/17/20 no complications Kimberly Encounter for IUD removal 01/19/21 Mirena removal/insertion Encounter for IUD insertion 08/31/20 Mirena insertion 01/19/21 Mirena removal/insertion Bronchitis Afib Vision abnormalities Accessory navicular bone of right foot Overweight (BMI 25.0-29.9) Acute appendicitis No pertinent past medical history Surgical History Surgical History History of wisdom tooth extraction History of appendectomy Family History Family History Father Atrial fibrillation Grandparent Dementia maternal grandmother Mother No problems noted. 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 HEAD: Normocephalic, atraumatic. RESPIRATORY: Airway patent, respirations nonlabored. Clear to auscultation bilaterally, no rales, rhonchi, wheezing. No focal lung sounds CARDIOVASCULAR: Regular rate and rhythm without murmurs, rubs, or gallops. MUSCULOSKELETAL: Moves all extremities. No gross deformities. No significant chest wall tenderness to palpation SKIN: Warm, dry, normal color. NEURO: A&O X3. Speech clear. Cranial nerves II-XII grossly intact. Steady gait. No ataxic movements. PSYCHIATRIC: Appropriate mood and affect. Normal interaction. Course Vital Signs Vital signs: Vital Signs Temperature 98.9 F 04/15/25 09:47 Pulse Rate 108 H 04/15/25 09:47 Respiratory Rate 16 04/15/25 09:47 Blood Pressure 119/77 04/15/25 09:47 Pulse Oximetry 100 04/15/25 09:47 Temperature 98.9 F 04/15/25 09:47 Pulse Rate 108 H 04/15/25 09:47 Respiratory Rate 16 04/15/25 09:47 Blood Pressure 119/77 04/15/25 09:47 Pulse Oximetry 100 04/15/25 09:51 Oxygen Delivery Room Air 04/15/25 09:51 MDM - URI/Sore Throat MDM Narrative Medical decision making narrative: Patient presented to ED with several day history of URI symptoms, reporting shortness of breath, chest pain today. Patient tachycardic upon arrival. In no acute distress upon my evaluation. Oxygen 100% on room air. Viral swabs are negative Chest x-ray is clear Basic laboratory studies grossly unremarkable. D-dimer WNL. No evidence of DVT. Low suspicion for PE. EKG unremarkable Trop undetectable Discussed lab and imaging findings with patient, overall reassuring workup. Suspicious for viral URI. Discussed further management of such. Will prescribe Tessalon Perles for home. Discussed other OTC therapies to try. Recommended follow-up with PCP. Given strict return precautions. Patient discharged in stable condition. Medical Records Attestation: I reviewed the patient's medical records. Lab Data Attestation: I reviewed the patient's lab results. 04/15/25 11:03 04/15/25 11:03 Labs: Lab Results 04/15/25 04/15/25 Range/Units 09:41 11:03 WBC 10.6 H (4.5-10.0) K/mm3 RBC 4.54 (4.2-5.4) M/mm3 Hgb 14.0 (12.0-15.0) g/dL Hct 41.4 (37.0-47.0) % MCV 91.2 (80-100) fl MCH 30.8 (26-34) pg MCHC 33.8 (32-36) g/dl RDW 11.9 (11.5-14.5) % Plt Count 242 (150-375) k/mm3 MPV 9.8 (7.4-10.4) fl Immature Gran % (Auto) 0.2 (0-0.5) % Neut % (Auto) 78.8 H (45.5-73.1) % Lymph % (Auto) 13.9 L (18.3-44.2) % Benton % (Auto) 6.2 (2.6-8.5) % Eos % (Auto) 0.5 (0-4.4) % Baso % (Auto) 0.4 (0.2-1.2) % Lymph # (Auto) 1.47 (0.9-3.2) K/mm3 Benton # (Auto) 0.7 H (0.1-0.6) K/mm3 Eos # (Auto) 0.1 (0-0.3) K/mm3 Baso # (Auto) 0.0 (0.0-0.1) K/mm3 Abs Immat Gran (auto) 0.02 (0.00-0.031) K/mm3 Absolute Neuts (auto) 8.4 H (1.3-6.7) K/mm3 Absolute Nucleated RBC 0.000 (0.0-0.012) K/mm3 Nucleated RBC % 0.0 (0.0-0.2) % PT 13.6 (11.1-14.7) Seconds INR 1.0 APTT 30.1 (22.3-36.8) Seconds D-Dimer 0.35 (<0.48) ug/mL Sodium 137 (137-145) mmol/L Potassium 4.0 (3.4-5.0) mmol/L Chloride 107 (98-107) mmol/L Carbon Dioxide 25 (22-30) mmol/L Anion Gap 5 (4-12) mmol/L BUN 8 D (7-17) mg/dL Creatinine 0.74 (0.7-1.0) mg/dL Estim Creat Clear Calc 117 ml/min Estimated GFR > 60 (59 - ) Glucose 91 (65-110) mg/dL Calcium 9.2 (8.4-10.2) mg/dL Total Bilirubin 0.9 (0.2-1.3) mg/dL AST 24 (14-36) U/L ALT 31 (6-35) U/L Alkaline Phosphatase 88 (38-126) U/L Troponin I < 0.012 (0.000-0.034) ng/mL Total Protein 7.5 (6.3-8.2) g/dL Albumin 4.3 (3.5-5.1) g/dL Influenza A (RT-PCR) Negative (Negative) Influenza B (RT-PCR) Negative (Negative) RSV (RT-PCR) Negative (Negative) SARS-CoV-2 RNA (RT-PCR) Negative (Negative) Imaging Data Attestation: I personally reviewed and interpreted this imaging study as follows: Radiologist's impression: ITS Impressions Chest X-Ray 04/15/25 10:51 Impression: No acute cardiopulmonary abnormality. ECG Data EKG #1: Attestation: I personally reviewed and interpreted this ECG as follows: ECG completion date: 04/15/25 ECG completion time: 11:19 EKG Interpretation: normal rate (83), sinus rhythm and no ST changes Discharge Plan Discharge Clinical Impression: Upper respiratory infection Qualifiers: URI type: unspecified URI Qualified Code(s): J06.9 - Acute upper respiratory infection, unspecified Patient Disposition: Home Condition: Stable Instructions: Antibiotic Form, Viral Syndrome (ED), Cold Symptoms (ED), Acute Cough (ED) Additional Instructions: You tested negative for influenza, RSV, COVID. You likely have a viral upper respiratory infection that will resolve on its own. Stay well-hydrated at home. Recommend electrolyte rich fluids, Gatorade, Pedialyte, body armor. Utilize Tessalon Perles as needed for cough. Recommend Tylenol and Ibuprofen as neededfor discomfort and/or fevers. Recommend [id number] cough and cold medicines for symptom relief, Delsym, Mucinex, DayQuil, NyQuil, Sudafed, Robitussin, TheraFlu. Follow with primary care doctor upon resolution of symptoms. Return to the ED if you experience chest pain, difficulty breathing, unable to keep down food or drink, severe pain, or any other symptoms of concern. Patient Language: Hebrew Prescriptions: New benzonatate 200 mg capsule 200 mg PO TID PRN (Reason: cough) Qty: 15 0RF Follow-up/Referrals: David Varma MD [Primary Care Provider, Family Practice] Time of Disposition: 11:47
[2025-04-15 11:11] LABS: Hematocrit 41.4 % (37.0-47.0); Hemoglobin 14.0 g/dL (12.0-15.0); Immature Granulocyte Percent A 0.2 % (0-0.5); Lymphocytes Absolute Auto 1.47 K/mm3 (0.9-3.2); Mean Corpuscular HGB Conc 33.8 g/dl (32-36); Mean Corpuscular Hemoglobin 30.8 pg (26-34); Mean Corpuscular Volume 91.2 fl (80-100); Nucleated Red Blood Cells Absolute Auto 0.000 K/mm3 (0.0-0.012); Nucleated Red Blood Cells Perc 0.0 % (0.0-0.2); Platelet Count Result 242 k/mm3 (150-375); Red Blood Count 4.54 M/mm3 (4.2-5.4); White Blood Count 10.6 K/mm3 (4.5-10.0)
[2025-04-15 11:23] LABS: INR 1.0; Partial Thromboplastin Time 30.1 Seconds (22.3-36.8); Prothrombin Time 13.6 Seconds (11.1-14.7)
[2025-04-15 11:37] LABS: Alanine Aminotransferase 31 U/L (6-35); Albumin Level 4.3 g/dL (3.5-5.1); Alkaline Phosphatase 88 U/L (38-126); Anion Gap 5 mmol/L (4-12); Aspartate Amino Transferase 24 U/L (14-36); Bilirubin,Total 0.9 mg/dL (0.2-1.3); Blood Urea Nitrogen 8 mg/dL (7-17); Calcium 9.2 mg/dL (8.4-10.2); Carbon Dioxide 25 mmol/L (22-30); Chloride 107 mmol/L (98-107); Estimated CRCL calculation 117 ml/min; Estimated Glomerular Filt Rate > 60; Glucose 91 mg/dL (65-110); Potassium 4.0 mmol/L (3.4-5.0); Sodium 137 mmol/L (137-145); Total Protein 7.5 g/dL (6.3-8.2)
[2025-04-15 11:47] LABS: Troponin I < 0.012 ng/mL (0.000-0.034)
== END 2025-04-15 12:20 | disposition home or self-care (01) ==
PROVIDERS: Emergency Provider Physician Assistant; PCP Emergency Medicine
DX: J06.9 Acute upper respiratory infection, unspecified (principal); Z20.822 Contact with and (suspected) exposure to COVID-19; I48.91 Unspecified atrial fibrillation; E66.9 Obesity, unspecified; Z68.31 Body mass index [BMI] 31.0-31.9, adult
CPT/HCPCS: 36415; 71046; 80053; 84484; 85025; 85380; 85610; 85730; 87637; 93005; 99284